=== PATIENT | female | born 1985 | race Asian ===

== ENCOUNTER 2019-07-03 05:10 | Inpatient (IN) | payer MEDICAID ==
--- NOTE | 2019-07-03 06:01 | PN ---
L&D Outpatient: Visit - Reproductive Information Estimated Due Date: 07/09/19 Gestational Age: 39 Weeks and 1 Days : 1 - Reason for Visit Visit Reason: Three hours ago noted bleeding like a period followed by light bleeding when wiping after void. Denies abdominal pain. Reports some mild UCs but nothing strong or regular. Describes active FM. Denies LOF - Antepartal Records Antepartal Record: Reviewed, Uncomplicated - 34 week transfer from [place] - Patient History Patient History Significant: Yes Patient History Significant For: seasonal allergies Review of Systems Constitutional: Comfortable CV Complaint: No Respiratory: Shortness of Breath: No Gastrointestinal: No Nausea/Vomiting, Normal Bowel Movement Genitourinary: Bleeding, No Dysuria, No Leaking Fluid Musculoskeletal: Contractions - described as mild only Neurological: No Headache, No Visual Changes Movement: Normal L&D Outpatient: Exam Vitals - Most Recent: BP 106/69 HR 79 RR 18 T 97.8 SpO2 100% on RA - Cervical Exam Cervical Exam: 1cm/80%/vtx -1, moderate dark brown bloody show with small clot x 1 - Abdominal Exam Abdomen Exam: Non-Tender, Fundal Height Consistent with Dates - Membranes Membrane Status: Intact - Ultrasound/Biophysical Profile Ultrasound Status: Not Done EFM Findings - External Monitor Findings Baseline Heart Rate: 135 External Monitor Findings: Accelerations Present, No Pattern of Variable or Late Decelerations, Baseline Stable External Monitor Findings Comment: No evidence of metabolic acidemia Contractions: Regular, Mild Contraction Frequency: q 2-5 min L&D Outpatient: Asses/Plan Assessment: A: IUP at 39-1/7 with moderate bloody show in early labor No evidence of metabolic acidemia P: In consultation with Dr. Wesley will continue to monitor over the next few hours to track bleeding and evaluate for labor. Report to Ruth Garcia CNM who will assume care at 0800
[2019-07-03 06:05] LABS: Urine Benzodiazepine Screen None Detected (None Detect); Urine Opiates Screen None Detected (None Detect)
[2019-07-03] MEDS ORDERED: Lactated Ringers 1000 ML Bag* 1,000 ML IV ONE (09:18)
[2019-07-03] MEDS ORDERED: Buffered Lidocaine 1% SYRIN* 1 ML/SYRINGE INTRADERM ONE (09:18)
--- NOTE | 2019-07-03 09:28 | HP ---
General Information - Reason for Visit Contractions and bloody show - General Information Maternal Age: 34 Grav: 1 Para: 0 SAB: 0 IEA: 0 Estimated Due Date: 07/09/19 Determined By: LMP Maternal Blood Type and Rh: AB Positive - Results this Serology/RPR Result: Non-Reactive Rubella Result: Immune HBsAg Result: Negative HIV Result: Negative GBS Culture Result: Negative Past Medical History Delivery History: See Records Delivery History Comment: no prior deliveries Pertinent Past Medical History: Non-Contributory Pertinent Past Surgical History: None Pertinent Family History: Non-Contributory - Antepartal Records Antepartal Records: Reviewed, Complicated by: - AMA, NIPT normal Review of Systems Constitutional: Uncomfortable CV Complaint: No Respiratory: Shortness of Breath: No Gastrointestinal: No Nausea/Vomiting, Normal Bowel Movement Genitourinary: Bleeding, No Dysuria, No Leaking Fluid Musculoskeletal: No Epigastric Pain, Contractions Neurological: No Headache, No Visual Changes Movement: Normal Exam Allergies/Adverse Reactions: Allergies No Known Allergies Allergy (Verified 07/03/19 05:34) B/P: 106/69, P: 79, R: 18, T: 97.8 Lab Values - Entire Visit: Laboratory Tests 07/03/19 05:20 Urine Opiates Screen None detected Ur Barbiturates Screen None detected Ur Phencyclidine Scrn None detected Ur Amphetamines Screen None detected U Benzodiazepines Scrn None detected Urine Cocaine Screen None detected U Cannabinoids Screen None detected - Measurements Height: 5 ft 2.2 in Weight: 145 lb Weight in lbs: 145.768706 Body Mass Index (BMI): 26.3 Pre- Weight: 110 lb Weight Gained This : 35 lbs and 0 ozs - Exam Breast: Breast Exam Deferred CVA: No CVA Tenderness Extremities: No Edema Heart: Normal Rhythm/Heart Sounds HEENT: No Significant Findings Lungs: Clear Bilaterally Reflexes: DTR 2+ Thyroid: No Thyromegaly - Abdominal Exam Abdomen Exam: Non-Tender, Fundal Height Consistent with Dates - Ultrasound/Biophysical Profile Ultrasound Status: Not Done Targeted Exam Findings See L&D Outpatient Visit Provider Note for Findings: Yes Estimated Weight: 7.5 lb by kenyon's Cervical Exam: 2cm Effacement: 80% Station: -2 Presenting Part: Vertex Membrane Status: Intact Bleeding/Discharge: Bloody Show EFM Findings - External Monitor Findings Baseline Heart Rate: 135 External Monitor Findings: Accelerations Present, No Pattern of Variable or Late Decelerations, Variability Moderate, Baseline Stable Contractions: Mild, 45-90 Seconds Contraction Frequency: 4-6 min Assessment/Plan - Assessment A: IUP at 39 2/7 weeks Category I FHR, no evidence of metabolic acidemia GBS negative Early labor P: Admit to inpatient Discussed position changes and ambulation to promote labor progress Desires epidural eventually, will draw labs and start IV once active Reassess PRN Anticipate SVB - Plan Plan: Admit - Anticipate Vaginal Delivery - Date/Time of Admission Date of Admission: 07/03/19 Time of Admission: 09:15
[2019-07-03] MEDS ORDERED: Lactated Ringers 1000 ML Bag* 1,000 ML IV SCH (10:00)
--- NOTE | 2019-07-03 14:02 | PN ---
Progress Note - Progress Note Date of Service: 07/03/19 Note: S: Still having contractions but they aren't very strong. Has been up walking. Thinks her water may have broken but unsure O: B/P: 107/65, P: 91, R: 18, T: 98.7 FHR: baseline 140, moderate variability, +accelerations, no decelerations UCs: irregular, mild VE: 2/80/-1 A: IUP at 39 2/7 weeks Category I FHR, no evidence of metabolic acidemia Early labor vs false labor P: Recommended position changes, ambulation Consider going home to await active labor Will reassess in a few hours
--- NOTE | 2019-07-03 16:52 | PN ---
Progress Note - Progress Note Date of Service: 07/03/19 Note: Discharge Note: S: Has been napping. O:B/P: 107/65, P: 91, R: 18, T: 98.7 FHR: baseline 140, moderate variability, +accelerations, no decelerations UCs: irregular, mild VE: 2/80/-1, intact. scant bloody show A: IUP at 39 2/7 weeks Category I FHR, no evidence of metabolic acidemia False labor P: Discussed not in labor and bloody show has lessened. Discharge home in stable condition to await active labor Discharge instructions reviewed To keep next office appointment if undelivered by then
== END 2019-07-03 17:25 | disposition home or self-care (01) | DRG 566 ==
LOC: MCHOBOUT 05:10 → MCHOB 09:16
PROVIDERS: ADMIT Midwife; ATTEND Midwife
DX: O62.2 Other uterine inertia (principal); Z3A.39 39 weeks gestation of pregnancy
CPT/HCPCS: 80307

== ENCOUNTER 2019-07-05 08:51 | Inpatient (IN) | payer MEDICAID ==
--- NOTE | 2019-07-05 12:18 | PN ---
L&D Outpatient: Visit - Reproductive Information Estimated Due Date: 07/09/19 Gestational Age: 39 Weeks and 3 Days : 1 Para: 0 - Reason for Visit Visit Reason: pt reports ctx increasing in strength and frequency - Antepartal Records Antepartal Record: Reviewed, Complicated by: - AMA, late transfer from [place] - Patient History Patient History Significant: No Review of Systems Constitutional: Uncomfortable CV Complaint: No Respiratory: Shortness of Breath: No Gastrointestinal: No Nausea/Vomiting, Normal Bowel Movement Genitourinary: No Dysuria, No Bleeding, No Leaking Fluid Musculoskeletal: No Epigastric Pain, Contractions Neurological: No Headache, No Visual Changes Movement: Normal L&D Outpatient: Exam Vitals - Most Recent: T-98.9, P-67, R-16, O2-100%, BP-111/67 - Cervical Exam Cervical Exam: 3cm/ 60%/ -1/ vtx - Abdominal Exam Abdomen Exam: Non-Tender, Fundal Height Consistent with Dates - Membranes Membrane Status: Intact - Ultrasound/Biophysical Profile Ultrasound Status: Not Done EFM Findings - External Monitor Findings Baseline Heart Rate: 140 External Monitor Findings: Accelerations Present, No Pattern of Variable or Late Decelerations, Variability Moderate, Baseline Stable Contractions: Irregular, Mild, Moderate Contraction Frequency: 4-7 minutes L&D Outpatient: Asses/Plan Assessment: 34 year old at 39 3/7 weeks gestation in early labor, no evidence of acidemia. - Discharge Diagnosis Discharge Diagnosis: Supervision-Normal Preg Plan: Continue Observation - Pt with some cervical change, will recheck in 2 hours
--- NOTE | 2019-07-05 16:15 | PN ---
L&D Outpatient: Visit - Reproductive Information Estimated Due Date: 07/09/19 Gestational Age: 39 Weeks and 3 Days : 1 Para: 0 - Reason for Visit Visit Reason: Pt here for evaluation of labor status - Antepartal Records Antepartal Record: Reviewed, Complicated by: - AMA, late transfer from [place] - Patient History Patient History Significant: No Review of Systems Constitutional: Uncomfortable CV Complaint: No Respiratory: Shortness of Breath: No Gastrointestinal: No Nausea/Vomiting, Normal Bowel Movement Genitourinary: No Dysuria, No Bleeding, No Leaking Fluid Musculoskeletal: No Epigastric Pain, Contractions Neurological: No Headache, No Visual Changes Movement: Normal L&D Outpatient: Exam Vitals - Most Recent: BP 113/70, P-90, T-97.8, 18-R - Cervical Exam Cervical Exam: 3cm/ 60%/ -1/ vtx - Abdominal Exam Abdomen Exam: Non-Tender, Fundal Height Consistent with Dates - Membranes Membrane Status: Intact - Ultrasound/Biophysical Profile Ultrasound Status: Not Done EFM Findings - External Monitor Findings Baseline Heart Rate: 140 External Monitor Findings: Accelerations Present, No Pattern of Variable or Late Decelerations, Variability Moderate, Baseline Stable Contractions: Irregular, Mild, Moderate, 45-90 Seconds Contraction Frequency: 4-6 minutes L&D Outpatient: Asses/Plan Assessment: Pt still in early labor. Only minimal change in cervical dilation over 4 hours. Pt aware that active labor may ensure at any time. Strong preference for discharge home to await active labor. - Discharge Diagnosis Discharge Diagnosis: False Labor, Supervision-Normal Preg Plan: Discharge Home in Stable Condition - Pt offered continued observation at [facility] vs discharge home to await active labor. Strong preference for discharge home.
--- NOTE | 2019-07-05 17:28 | PN ---
Progress Note - Progress Note Date of Service: 07/05/19 Note: Pt was given discharge paperwork, but then decided she feels too uncomfortable to go home, will instead ambulate for a while then will recheck on return to room.
[2019-07-05 18:10] LABS: Urine Benzodiazepine Screen None Detected (None Detect); Urine Opiates Screen None Detected (None Detect)
[2019-07-05] MEDS ORDERED: Nalbuphine* 10 MG/ML 1 ML VIAL IM ONE (22:29)
--- NOTE | 2019-07-05 22:29 | PN ---
Progress Note - Progress Note Date of Service: 07/05/19 SOAP: Subjective: Pt reports ctx increasingly uncomfortable, coping well, interested in IM/ IV pain relief. at bedside. Objective: FHR: 125 per doppler UCs: 3-4 minutes Cervix: 3-4 cm/ 60%/ -2 Membranes intact Assessment: Pt still in early labor, making change but slowly. No evidence of acidemia. Plan: Discussed options with pt including discharge home to await active labor vs admission as inpatient. Pt with strong preference to stay on outpt status for another couple of hours before deciding. Requests pain relief. Will do trial of Nubain and Phenergan for therapeutic rest. If ctx cease can consider discharge home, if active labor ensues will admit.
[2019-07-05] MEDS ORDERED: Promethazine INJ(RESTRICTED)* 25 MG/ML 1 ML VIAL IM ONE (22:30)
[2019-07-06 01:03] LABS: Hematocrit 38 % (35-47); Hemoglobin 12.8 g/dL (12.0-16.0); Mean Corpuscular HGB Conc 34 g/dL (31-36); Mean Corpuscular Hemoglobin 32 pg (27-31); Mean Corpuscular Volume 95 fL (80-97); Platelet Count 262 10^3/uL (150-450); Red Blood Count 3.96 10^6 /uL (3.70-4.87); Red Cell Distribution Width 13 % (10-15); White Blood Count 14.7 10^3/uL (3.5-10.8)
--- NOTE | 2019-07-06 05:11 | HP ---
General Information - Reason for Visit Pt here for labor contractions increasing in pain and frequency. - General Information Maternal Age: 34 Grav: 1 Para: 0 SAB: 0 IEA: 0 Estimated Due Date: 07/09/19 Determined By: LMP Gestational Age in Weeks/Days: 39 4/7 Maternal Blood Type and Rh: AB Positive - Results this Serology/RPR Result: Non-Reactive Rubella Result: Immune HBsAg Result: Negative HIV Result: Negative GBS Culture Result: Negative Past Medical History Delivery History: See Records - primigravida Pertinent Past Medical History: Non-Contributory Pertinent Past Surgical History: None Pertinent Family History: Non-Contributory - Antepartal Records Antepartal Records: Reviewed, Complicated by: - AMA, late transfer of care from [place] Review of Systems Constitutional: Uncomfortable CV Complaint: No Respiratory: Shortness of Breath: No Gastrointestinal: No Nausea/Vomiting, Normal Bowel Movement Genitourinary: No Dysuria, No Bleeding, No Leaking Fluid Musculoskeletal: No Epigastric Pain, Contractions Neurological: No Headache, No Visual Changes Movement: Normal Exam Allergies/Adverse Reactions: Allergies No Known Allergies Allergy (Verified 07/03/19 05:34) T-98.3, P-90, R-16, BP-113/70 Lab Values - Entire Visit: Laboratory Tests 07/05/19 07/06/19 07/06/19 17:30 00:49 00:49 WBC 14.7 H RBC 3.96 Hgb 12.8 Hct 38 MCV 95 MCH 32 H MCHC 34 RDW 13 Plt Count 262 MPV 8.0 Urine Opiates Screen None detected Ur Barbiturates Screen None detected Ur Phencyclidine Scrn None detected Ur Amphetamines Screen None detected U Benzodiazepines Scrn None detected Urine Cocaine Screen None detected U Cannabinoids Screen None detected Blood Type AB Positive Antibody Screen Negative - Measurements Height: 5 ft 4 in Weight: 65.771 kg Weight in lbs: 145.949414 Body Mass Index (BMI): 24.9 Pre- Weight: 49.895 kg Weight Gained This : 35 lbs and 0 ozs - Exam Breast: Breast Exam Deferred CVA: No CVA Tenderness Extremities: Edema - mild pedal Heart: Normal Rhythm/Heart Sounds HEENT: No Significant Findings Lungs: Clear Bilaterally Rectal: Rectal Exam Deferred Reflexes: DTR 2+ Thyroid: No Thyromegaly - Abdominal Exam Abdomen Exam: Non-Tender, Fundal Height Consistent with Dates - Ultrasound/Biophysical Profile Ultrasound Status: Not Done Targeted Exam Findings See L&D Outpatient Visit Provider Note for Findings: Yes Estimated Weight: 8# Cervical Exam: 4cm Effacement: 60% Station: -2 Presenting Part: Vertex Membrane Status: Bulging Bleeding/Discharge: None EFM Findings - External Monitor Findings Baseline Heart Rate: 135 External Monitor Findings: Accelerations Present, No Pattern of Variable or Late Decelerations, Variability Moderate Contractions: Regular, Mild, Moderate, 45-90 Seconds Contraction Frequency: 3-4 Assessment/Plan - Assessment Pt is 34 year old at 39 4/7 weeks gestation, in early labor, membranes intact, no evidence of acidemia. Has been experiencing prodromal labor for several days. - Plan Plan: Admit - Anticipate Vaginal Delivery - Pt admitted to L&D, will consider augmentation and/ or epidural analgesia - Date/Time of Admission Date of Admission: 07/06/19 Time of Admission: 00:31
--- NOTE | 2019-07-06 06:09 | PN ---
Progress Note - Progress Note Date of Service: 07/06/19 Note: Several extensive conversations held with pt's via bottom bleacher line. Pt' s very anxious, many questions. He spoke with a friend of his who is an OB in [place], and had many questions. We discussed options for proceeding, both with pain relief, and with encouraging labor progress. Plan made that when pt is alert again following Nubain administration we will get her an epidural, then proceed to augment labor with Pitocin, and possibly AROM. Discussed extensively risks and benefits of each of these procedures.
--- NOTE | 2019-07-06 08:00 | PN ---
Progress Note - Progress Note Date of Service: 07/06/19 SOAP: Subjective: [] Objective: [] Assessment: [] Plan: []
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
[2019-07-06] MEDS ORDERED: OBEPIDURAL* 250 ML EPIDURAL ONE (13:12)
[2019-07-06] MEDS ORDERED: Bupivacaine 0.25% SDV PF* 10 ML VIAL INJ ONE (13:16)
[2019-07-06] MEDS ORDERED: EPHEDrine (Pressors)* 50 MG/ML VIAL IV PUSH PRN (13:47)
[2019-07-06] MEDS ORDERED: Phenylephrine 40 MCG/ML SYRINGE IV PUSH PRN (13:47)
[2019-07-06] MEDS ORDERED: Famotidine TAB* 20 MG PO PRN (13:47)
[2019-07-06] MEDS ORDERED: Sodium Citrate/Citric Acid* 15 ML UDC PO PRN (13:47)
[2019-07-06] MEDS ORDERED: Lactated Ringers 1000 ML Bag* 1,000 ML IV ONE (13:47)
[2019-07-06] MEDS ORDERED: Lactated Ringers 1000 ML Bag* 1,000 ML IV SCH (14:00)
[2019-07-06] MEDS ORDERED: OBEPIDURAL* 250 ML EPIDURAL SCH (14:00)
--- NOTE | 2019-07-06 14:59 | PN ---
Progress Note - Progress Note Date of Service: 07/06/19 SOAP: Subjective: Pt sleeping comfortably following epidural placement. Mother at bedside. Objective: FHR: Baseline 140/ moderate variability/ + accels/ no decels UCs: Q6 minutes Cervix: 3-4 cm/ 60%/ -1/ vtx Membranes intact Temp:97.8 BP: 110/72 Assessment: Pt continues to be in prolonged prodromal labor. No evidence of acidemia, no evidence of chorioamnionitis. Plan: Discussed options with pt. She is very uncomfortable with the ctx, but is not making much cervical change. Would like pain relief. Advised could do another round of Nubain and Phenergan if desired which would likely help with pain relief, but would not progress labor. Or could get epidural and start Pitocin, and try to get pt into active labor. Pt prefers latter plan, states she is tired of waiting for labor to start. Her mother is with her, has left. Will start low dose Pitocin and consider AROM once ctx closer together.
[2019-07-06] MEDS ORDERED: Oxytocin in LR* 20 UNITS/1,000 ML BAG IVPB SCH (15:00)
--- NOTE | 2019-07-06 18:27 | PN ---
Progress Note - Progress Note Date of Service: 07/06/19 SOAP: Subjective: Pt comfortable with epidural. Pt's now at bedside. He was out at nurses ' station for a long period, discussing his concerns about their relationship, as well as concerns regarding pt's mental health. Discussed resources, including [facility] program, [employer]/ [employer] community, [facility], etc. Objective: FHR: at 1535 Pitocin started at 2 mu/min. At 1544 pt began to contract every minute without full return to baseline in between. At 1547 RN turned off Pitocin because of ctx. At 1548 FHR began to exhibit decel lasting 6 minutes in total with airam in 60's returning to baseline. RN repositioned pt, started O2, called for provider. Dr. Perez was called in to room and evaluated pt. At that time FHR had returned to baseline. At 1605 he performed AROM to clear fluid. At this time, FHR baseline 150/ moderate variability/ + accels/ no decels. UCs: 1-5 minutes, moderate strength Temp: 98.4, BP: 119/71 Assessment: At this time, no evidence of acidemia. Per Dr. Perez's exam, pt appears to have made some cervical change. Ctx pattern appears dysfunctional. Plan: As she is now ruptured will wait 2-3 hours before rechecking. Per consult with Dr. Perez following above incident, recommend utilizing IUPC if Pitocin restarted.
--- NOTE | 2019-07-06 20:48 | PN ---
Progress Note - Progress Note Date of Service: 07/06/19 SOAP: Subjective: Pt comfortable with epidural. Denies feeling ill. and mother at bedside. Objective: Cervix: 5-6cm/ 80%/ 0 station FHR: Baseline 155/ moderate/ no accels/ no decels UCs: Irregular, Q2-6 minutes Temp: 100.2 Assessment: Some change in dilation although minimal, potentially dysfunctional labor pattern. Elevation in temperature, not febrile at this time. Plan: Recheck temp in 1 hr or sooner if symptomatic. Recheck cervix in 2 hours or sooner PRN
--- NOTE | 2019-07-06 21:11 | PN ---
Progress Note - Progress Note Date of Service: 07/06/19 SOAP: Dr. Perez called to check pt status. Advised of elevated temp, not febrile at this time. Recommends broad spectrum abx if fever develops. At 2039 FHR exhibited another deceleration, lasting 6 minutes in total and with a airam of 70 bpm, although for most of the decel FHR was exhibiting marked variability w/ HR> 110. Pt treated with IV bolus, position change, O2. Decel resolved into elevated FHR during recovery, has now returned to baseline of 155. Pt temp rechecked, still 100.2. Will monitor closely.
--- NOTE | 2019-07-07 00:03 | PN ---
Progress Note - Progress Note Date of Service: 07/06/19 SOAP: Subjective: Pt sleeping in bed, denies pain. Objective: Cervical exam: 5cm/ 80%/ 0 station- unchanged from previous except cervix feels slightly swollen, and slight caput noted FHR: has periods of minimal variability, currently baseline 150, moderate variability, + accels, no decels UCs: 145-150 MVU at this time Temp: 99.5, BP-108/73 Assessment: No change in dilation from previous exam. Starting to have some edema and some caput. Afebrile. FHR not currently reflective of acidemia. Plan: Pt counseled that I am concerned about her lack of progression towards complete dilation. Recommend placement of IUPC, pt agrees. IUPC placed without difficulty , pt tolerated well. Will monitor MVUs over an hour and determine adequacy of ctx. If ctx inadequate, recommend another trial of Pitocin.
--- NOTE | 2019-07-07 02:18 | PN ---
Progress Note - Progress Note Date of Service: 07/07/19 Note: After placing IUPC, pt's MVUs averaged around 125. Pitocin started at 1 mu/min. No notable increase in ctx initially. After 15 minutes rate increased to 2 mu/ min. Almost immediately pt began to demonstrate uterine hyperstimulation, with 7 ctx in 10 minutes and no complete return to baseline in between. Pitocin cut to 1 mu/min. FHR began to demonstrate 5 minute long deceleration characterized by marked variability, at 70 bpm at its airam. Pitocin stopped completely, O2 applied to pt, pt repositioned, IV bolus initiated. After decel resolved FHR became tachycardic into high 170's for about 15 minutes before eventually settling back doen into 150s. FHR currently baseline 150/ moderate/ + accels, no decels. Cervix did show some change: 6cm/ 80%/ 0 station. Will recalculate MVUs and consider administration of 1 mu/ min oxytocin.
--- NOTE | 2019-07-07 05:42 | PN ---
Progress Note - Progress Note Date of Service: 07/07/19 SOAP: Subjective: Pt resting in bed, fatigued but relatively comfortable. Objective: Cervix unchanged from previous exam three hours ago. Pitocin remains off FHR: Periods of minimal variability, periods of moderate variability with accelerations, baseline at 150, no decels UCs: Irregular, 110 MVUs Fluid clear, bloody show Assessment: Pt with no cervical change in the last three hours, experiencing inadequate ctx , but experiences hyperstimulation with resultant FHR decelerations with even low dose Pitocin. Plan: Consulted with Dr. Perez by phone. Given the situation of lack of progress and inability to utilize Pitocin, recommend delivery. As FHR currently stable and it is not an emergency, alternate option would be to keep waiting and see if things change. Spoke with pt advised her of above. Discussed recommendation for delivery, reason for recommendation, risks including bleeding, infection, procedure of delivery. Pt requests some time to think. and mother present. I spoke with pt earlier this evening about her being back in the room and she states that she was comfortable with him being there at this time.
[2019-07-07] MEDS ORDERED: Terbutaline INJ* 1 MG/ML VIAL ONE (06:01)
[2019-07-07] MEDS ORDERED: fentaNYL* 50 MCG/ML 2 ML VIAL (100 MCG VIAL) ONE (06:25)
[2019-07-07] MEDS ORDERED: KETAMINE HCL* 50 MG/ML 10 ML VIAL ONE (06:25)
[2019-07-07] MEDS ORDERED: Morphine PF AMP (0.5MG/ML)* 5 MG/10 ML AMP ONE (06:26)
[2019-07-07] MEDS ORDERED: Midazolam* 1 MG/ML 5 ML VIAL (5 MG) ONE (06:26)
[2019-07-07] MEDS ORDERED: ceFOXitin 2 GM IVPREMIX* 2 GM/50 ML BAG ONE (06:30)
[2019-07-07] MEDS ORDERED: Naloxone* 0.4 MG/ML 1 ML VIAL IV PRN ×2 (06:31→07:14)
[2019-07-07] MEDS ORDERED: fentaNYL* 50 MCG/ML 2 ML VIAL (100 MCG VIAL) IV PRN (06:31)
[2019-07-07] MEDS ORDERED: Phenylephrine 40 MCG/ML SYRINGE ONE (06:32)
[2019-07-07] MEDS ORDERED: Ondansetron INJ* 2 MG/ML VIAL ONE (06:32)
[2019-07-07] MEDS ORDERED: EPHEDrine (Pressors)* 50 MG/ML VIAL ONE (06:32)
[2019-07-07] MEDS ORDERED: Ketorolac INJ* 30 MG/ML 1 ML VIAL ONE (06:32)
[2019-07-07] MEDS ORDERED: PROCHLORPERAZINE INJ 5 MG/ML 2 ML VIAL ONE (06:32)
[2019-07-07] MEDS ORDERED: Scopolamine 1.5 mg* PATCH ONE (06:32)
[2019-07-07] MEDS ORDERED: OXYTOCIN* 10 UNITS/ML 1 ML VIAL ONE (06:32)
[2019-07-07] MEDS ORDERED: Chloroprocaine 3%* 20 ML VIAL ONE (06:33)
[2019-07-07] MEDS ORDERED: DiMENhydriNATE IV* 50 MG/ML VIAL ONE (06:54)
[2019-07-07] MEDS ORDERED: Lidocaine 2% w/ EPI 1:200,000* 20 ML SDV VIAL ONE (06:54)
[2019-07-07] MEDS ORDERED: Lidocaine 2% PF* 10 ML AMP ONE (06:54)
[2019-07-07] MEDS ORDERED: oxyCODONE TAB* 5 MG TAB PO PRN (07:14)
[2019-07-07] MEDS ORDERED: Naloxone* 2 MG in NS 0.9% 250 ML* 250 ML IV PRN (07:14)
[2019-07-07] MEDS ORDERED: Ondansetron INJ* 2 MG/ML VIAL IV PRN (07:14)
[2019-07-07] MEDS ORDERED: Acetaminophen TAB* 325 MG PO PRN (07:14)
[2019-07-07] MEDS ORDERED: DiMENhydriNATE IV* 50 MG/ML VIAL IV PUSH PRN (07:14)
[2019-07-07] MEDS ORDERED: Scopolamine 1.5 mg* PATCH TRANSDERM PRN (07:14)
[2019-07-07] MEDS ORDERED: Nalbuphine* 10 MG/ML 1 ML VIAL IV PRN (07:14)
[2019-07-07] MEDS ORDERED: diPHENhydraMINE IV* 50 MG/ML 1 ml VIAL (BENADRYL) IV PRN (07:14)
[2019-07-07] MEDS ORDERED: PROCHLORPERAZINE INJ 5 MG/ML 2 ML VIAL IV PRN (07:14)
[2019-07-07] MEDS ORDERED: Glycerin ADULT SUPP PR PRN (08:01)
[2019-07-07] MEDS ORDERED: Dibucaine 1% 28.35 GM TUBE PR PRN (08:01)
[2019-07-07] MEDS ORDERED: Zolpidem TAB* 5 MG PO PRN (08:01)
[2019-07-07] MEDS ORDERED: Witch Hazel PAD* JAR TOPICAL PRN (08:01)
[2019-07-07] MEDS ORDERED: Lactated Ringers 1000 ML Bag* 1,000 ML IV SCH (09:00)
[2019-07-07] MEDS: Docusate CAP* 100 MG PO SCH ×3 (16:07→22:01)
[2019-07-07] MEDS: Ketorolac INJ* 30 MG/ML 1 ML VIAL IV PRN (16:08)
[2019-07-07] MEDS: Simethicone TAB* 80 MG TAB.CHEW PO SCH ×3 (16:08→22:01)
--- NOTE | 2019-07-07 23:28 | OP ---
DATE OF OPERATION: 07/07/19 - ROOM #104 DATE OF : 81 SURGEON: Gurwinder Perez MD [employer] OPERATOR: Tory Matias, certified nurse [employer]. ANESTHESIA: Epidural. PRE-OP DIAGNOSIS: at 39 weeks, in labor with persistent episodes of bradycardia in labor, nonreassuring monitoring. POST-OP DIAGNOSIS: at 39 weeks, in labor with persistent episodes of bradycardia in labor, nonreassuring monitoring. OPERATIVE PROCEDURE: Primary low-transverse section with vacuum extraction. ESTIMATED BLOOD LOSS: 600 cc. SPECIMENS SENT TO PATHOLOGY: Cord blood. FLUIDS: She received 1200 cc of IV crystalloid fluid. URINE OUTPUT: 500 cc of clear urine. FINDINGS: Delivery of a male infant with a weight of 8 pounds 8 ounces with Apgars of 8 and 9 over clear fluid. The placenta was grossly intact with a 3- vessel cord noted. The uterus, adnexa, bowel, and bladder were all within normal limits and there were no complications. DESCRIPTION OF PROCEDURE: The patient was taken to the operating room where she was identified. She was placed on the operating table where an epidural anesthetic was obtained without difficulty. She was then placed in the supine position with a leftward tilt, prepped and draped in a normal sterile fashion. A Pfannenstiel skin incision was made with a knife and carried through to the underlying layer of fascia. The fascia was nicked in the midline and extended laterally with curved Quintanilla scissors. The fascia was then grasped superiorly and inferiorly with Noni clamps and dissected out sharply from the rectus muscle. The rectus muscle was in the midline bluntly. The peritoneum was identified, grasped with pickups, and entered sharply with Metzenbaum scissors and extended superiorly and inferiorly sharply. A bladder blade was inserted into the patient's abdomen. A bladder flap was created using Metzenbaum scissors, over which the bladder blade was then reinserted. A low-transverse incision was made with a knife and extended laterally with bandage scissors. The infant's head was then grasped and delivered with vacuum extraction atraumatically. The nose and mouth were suctioned. The rest of the 's body was then delivered. The cord was clamped and cut and the was handed off to the awaiting food safety scientist. Cord bloods were obtained. The placenta was removed manually. The uterus was then exteriorized and cleared of all clots and debris using moist laparotomy sponges. The uterine incision was then closed using 0 Polysorb suture in a running locked fashion with the second imbricating layer of 0 Polysorb suture with good hemostasis noted. At this point, the uterus was returned to the patient's abdomen. The gutters were then cleared of all clots and debris using moist laparotomy sponges. The irrigation fluid was suctioned. The sponges were removed from the patient's abdomen. The peritoneum was then closed using 3-0 Polysorb suture in a running fashion. The fascia was closed using 0 Polysorb suture in a running fashion, and the skin was closed with 4- 0 Monocryl subcuticular stitch. The patient tolerated the procedure well. Sponge, lap, and needle counts were correct x2. She was then transferred to the recovery room area in stable condition. [id number] #: [id number] MTDD
[2019-07-08] MEDS: Ketorolac INJ* 30 MG/ML 1 ML VIAL IV PRN ×2 (00:13→09:22)
[2019-07-08] MEDS: oxyCODONE/Acetamin 5/325 MG* TAB PO PRN ×4 (05:30→23:54)
[2019-07-08] MEDS ORDERED: Influenza VAC *QUAD* 2019-20* 0.5 ML SYRINGE IM ONE (09:00)
[2019-07-08] MEDS ORDERED: Ferrous Gluconate TAB* 324 MG TAB PO SCH (09:00)
[2019-07-08] MEDS: Docusate CAP* 100 MG PO SCH ×3 (09:18→20:26)
[2019-07-08] MEDS: Simethicone TAB* 80 MG TAB.CHEW PO SCH ×4 (09:19→20:26)
[2019-07-08 09:54] LABS: ABS Basophils 0.1 10^3/ul (0-0.2); ABS Eosinophils 0.1 10^3/ul (0-0.6); ABS Lymphocytes 1.4 10^3/ul (1.0-4.8); ABS Monocytes 0.6 10^3/ul (0-0.8); ABS Neutrophils 12.7 10^3/ul (1.5-7.7); Eosinophil % 0.5 %; Hematocrit 31 % (35-47); Hemoglobin 10.3 g/dL (12.0-16.0); Lymphocyte % 9.2 %; Mean Corpuscular HGB Conc 34 g/dL (31-36); Mean Corpuscular Hemoglobin 32 pg (27-31); Mean Corpuscular Volume 96 fL (80-97); Mean Platelet Volume 7.5 fL (7.4-10.4); Platelet Count 231 10^3/uL (150-450); Red Cell Distribution Width 13 % (10-15); White Blood Count 14.7 10^3/uL (3.5-10.8)
[2019-07-08] MEDS: Ibuprofen TAB* 600 MG PO PRN (18:34)
[2019-07-09] MEDS: Ibuprofen TAB* 600 MG PO PRN ×2 (09:11→18:16)
[2019-07-09] MEDS: Simethicone TAB* 80 MG TAB.CHEW PO SCH ×4 (09:11→22:08)
[2019-07-09] MEDS: Docusate CAP* 100 MG PO SCH ×3 (09:11→22:08)
[2019-07-09] MEDS: oxyCODONE/Acetamin 5/325 MG* TAB PO PRN ×2 (14:45→22:08)
[2019-07-10] MEDS ORDERED: Scopolamine PATCH Remove* 1 NOTE MISC PATCH OFF PRN (07:15)
[2019-07-10] MEDS: Ibuprofen TAB* 600 MG PO PRN ×3 (08:16→21:13)
[2019-07-10] MEDS: Docusate CAP* 100 MG PO SCH ×3 (08:17→21:13)
[2019-07-10] MEDS: Simethicone TAB* 80 MG TAB.CHEW PO SCH ×4 (08:17→21:13)
[2019-07-10] MEDS: oxyCODONE/Acetamin 5/325 MG* TAB PO PRN ×2 (08:17→21:13)
[2019-07-10] MEDS ORDERED: Magnesium Hydroxide LIQ* 30 ML UDC PO PRN (14:35)
[2019-07-10 20:35] VITALS: BP 113/63
== END 2019-07-10 21:40 | disposition home or self-care (01) | DRG 540 ==
LOC: MCHOBOUT 08:51 → MCHOB 07-06 00:31
PROVIDERS: ADMIT Midwife; ATTEND Obstetrics & Gynecology
PROC: 10907ZC Drainage of Amniotic Fluid, Therapeutic from Products of Conception, Via Natural or Artificial Opening (ICD-10-PCS; 2019-07-07)
PROC: 10D00Z1 Extraction of Products of Conception, Low, Open Approach (ICD-10-PCS; principal; 2019-07-07 06:34)
DX: O76 Abnormality in fetal heart rate and rhythm complicating labor and delivery (principal); O62.0 Primary inadequate contractions; Z3A.39 39 weeks gestation of pregnancy; Z37.0 Single live birth
CPT/HCPCS: 36415; 80307; 85025; 85027; 86850; 86900; 86901; 88307; A9270-GY; J0694; J0780; J1240; J1885; J2001; J2250; J2300; J2400; J2405; J2550; J2590; J3010; J3105; J3490